=== PATIENT | male | born 2000 | race Caucasian/White ===

== ENCOUNTER 2019-02-10 22:08 | Emergency (ER) | payer OTHER ==
[2019-02-10] MEDS ORDERED: diphenhydrAMINE HCL 25 MG CAP PO ONE (22:27)
[2019-02-10] MEDS ORDERED: predniSONE 20 MG TAB PO ONE (22:27)
[2019-02-10 22:38] VITALS: BP 133/101; TEMP 98; O2SAT 96
--- NOTE | 2019-02-10 22:53 | ED.PDOC ---
History of Present Illness - General Chief Complaint: Dental/Mouth Stated Complaint: blisters in mouth, poss. allergic reaction to Zpak Time Seen by Provider: 02/10/19 22:21 Source: patient Exam Limitations: no limitations - History of Present Illness Initial Comments: the patient is a 18-year-old male presenting to the emergency room secondary to developing blisters to his mouth over the last 24 hours. He was eventually seen in clinic earlier today and was appropriately given some oral lidocaine for the discomfort as well as started on Valtrex. He is not having difficulty swallowing. No shortness of breath. No skin lesions. Most of the oral lesions are in the anterior part of the mouth. They do extend from blisters with a very thin surface from about mid pharynx forward all the way to the vermilion border. No real-time lesions at this point. No real ulcers, mainly blisters. Blisters are clear and fairly tense. I do not see any blisters in the nares at this point. Again no skin lesions at this point. No lesions around the eyes. the patient reports that he has had respiratory symptoms for the last week and was placed on azithromycin approximately 4 days ago. He only has 1 more day of the medication to go. He has had a azithromycin before. Timing/Duration: 24 hours Severity: moderate Improving Factors: nothing Worsening Factors: nothing Associated Symptoms: denies symptoms Allergies/Adverse Reactions: Allergies Azithromycin [From [facility]] Allergy (Verified 02/10/19 22:27) Home Medications: Ambulatory Orders Valacyclovir HCl 500 mg PO BID 02/10/19 predniSONE [Prednisone] 20 mg PO DAILY #4 tab 02/10/19 Review of Systems - Review of Systems Constitutional: States: malaise EENTM: States: see HPI Respiratory: States: cough Cardiology: States: no symptoms reported Gastrointestinal/Abdominal: States: no symptoms reported Genitourinary: States: no symptoms reported Musculoskeletal: States: no symptoms reported Skin: States: no symptoms reported Neurological: States: no symptoms reported Endocrine: States: no symptoms reported All other Systems: No Change from Baseline Past Medical History (General) - Patient Medical History Hx Seizures: No Hx Stroke: No Hx Dementia: No Hx Asthma: No Hx of COPD: No Hx Cardiac Disorders: No Hx Congestive Heart Failure: No Hx Pacemaker: No Hx Hypertension: No Hx Thyroid Disease: No Hx Diabetes: No Hx Gastroesophageal Reflux: No Hx Renal Disease: No Hx Cancer: No Hx of HIV: No Hx Hepatitis C: No Hx MRSA: No Surgical History: no surgical history - Vaccination History Hx Tetanus, Diphtheria Vaccination: Yes Hx Influenza Vaccination: Yes - Social History Hx Tobacco Use: No Family Medical History - Family History Mother Family History: Unknown Physical Exam - Physical Exam General Appearance: Alert, Comfortable, No apparent distress Eye Exam: bilateral normal Ears, Nose, Throat: hearing grossly normal, other - see history of present illness Neck: full range of motion, supple Respiratory: lungs clear, normal breath sounds, no respiratory distress, no accessory muscle use Cardiovascular/Chest: normal peripheral pulses, regular rate, rhythm, no edema Peripheral Pulses: radial,right: 2+, radial,left: 2+, dorsalis pedis,right: 2+, dorsalis pedis,left: 2+ Gastrointestinal/Abdominal: non tender, soft Rectal Exam: deferred Back Exam: normal inspection, no CVA tenderness, no vertebral tenderness Extremity: non-tender, normal inspection, no pedal edema, normal capillary refill 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 Source of this is not entirely certain. Viral cultures are being done and the patient has already been started on Valtrex which he should continue. He also already has some oral lidocaine for discomfort. I'm uncertain if the blistering is from a viral source or from a drug reaction. He is to discontinue the azithromycin as his respiratory symptoms have largely resolved. He was started on prednisone and Benadryl here tonight in case this is an allergic reaction to the azithromycin. He'll be placed on prednisone 20 mg a day for the next 4 days. He is to take Benadryl 1 tablet every 6 hours for the next 2-3 days. He needs to keep himself well hydrated. If the lesions are worsening, symptoms are worsening or he starts to develop significant skin symptoms then he will need a reevaluation as this may be the first symptom of a Beaulieu-Maury type syndrome. ER warnings were given. He is to photo document the lesions tonight and daily. he is otherwise to follow up with his primary care doctor on Tuesday. Departure - Departure Clinical Impression: Mucosal blister Disposition: Discharge to Home or Self Care Condition: Fair Departure Forms: ED Discharge - Pt. Copy, Patient Portal Self Enrollment Instructions: DI for Mouth Lesions Diet: regular diet Activity: increase activity as tolerated Referrals: PIA TOBIN MD [Primary Care Provider] - 1-2 Weeks Prescriptions: predniSONE [Prednisone] 20 mg PO DAILY #4 tab Home Medications: Ambulatory Orders Valacyclovir HCl 500 mg PO BID 02/10/19 predniSONE [Prednisone] 20 mg PO DAILY #4 tab 02/10/19 Additional Instructions: the patient is a 18-year-old male presenting with fairly severe blistering of his anterior oropharynx. Source of this is not entirely certain. Viral cultures are being done and the patient has already been started on Valtrex which he should continue. He also already has some oral lidocaine for discomfort. I'm uncertain if the blistering is from a viral source or from a drug reaction. He is to discontinue the azithromycin as his respiratory symptoms have largely resolved. He was started on prednisone and Benadryl here tonight in case this is an allergic reaction to the azithromycin. He'll be placed on prednisone 20 mg a day for the next 4 days. He is to take Benadryl 1 tablet every 6 hours for the next 2-3 days. He needs to keep himself well hydrated. If the lesions are worsening, symptoms are worsening or he starts to develop significant skin symptoms then he will need a reevaluation as this may be the first symptom of a Beaulieu-Maury type syndrome. ER warnings were given. He is to photo document the lesions tonight and daily. he is otherwise to follow up with his primary care doctor on Tuesday.
== END 2019-02-10 23:05 | disposition home or self-care (01) ==
LOC: ER 22:08
DX: S00.522A Blister (nonthermal) of oral cavity, initial encounter (principal)
CPT/HCPCS: 87254; J7512; Q0163

== ENCOUNTER → 2020-01-08 | Outpatient (CLI) | payer OTHER | LOC: GMAE 14:12 | PROVIDERS: ATTEND Family Medicine | DX: Z02.1 Encounter for pre-employment examination (principal) ==

== ENCOUNTER → 2020-02-20 | Outpatient (CLI) | payer OTHER | LOC: GMAE 10:35 | PROVIDERS: ATTEND Family Medicine | DX: Z02.1 Encounter for pre-employment examination (principal) ==